=== PATIENT | male | born 1940 | race Caucasian/White ===

== ENCOUNTER 2023-09-27 10:12 | Emergency (ER) | payer OTHER ==
[~2023-09-27] VITALS: Ht 170.2 cm; Wt 61.2 kg
[2023-09-27] MEDS ORDERED: GLUMETZA1000 MG (10:56)
[2023-09-27 11:53] LABS: HEMATOCRIT 33.9 % (39.0-48.0); HEMOGLOBIN 11.5 g/dL (13-16.00); MEAN CELL VOLUME 90.6 fL (80.0-100.00); MEAN CORPUSCULAR HEMOGLOBIN 30.7 pg (27.00-32.0); MEAN CORPUSCULAR HGB CONC 33.9 g/dl (32.0-36.0); PLATELET COUNT 306 K/uL (150-450); RED BLOOD COUNT 3.75 M/uL (4.00-6.00); RED CELL DISTRIBUTION WIDTH 13.5 % (11.5-14.5)
[2023-09-27 12:19] LABS: CALCIUM 9.7 mg/dL (8.5-10.1); CREATININE SERUM 0.84 mg/dL (0.70-1.30); GFR 87.27; POTASSIUM 4.26 mEq/L (3.5-5.1)
[2023-09-27] MEDS ORDERED: ZITHROMAX200 MG PO ×2 (12:47→12:50)
== END 2023-09-27 13:02 | disposition home or self-care (01) ==
LOC: ER 10:12
PROVIDERS: General Practice
DX: J10.1 Influenza due to other identified influenza virus with other respiratory manifestations (principal); Z20.822 Contact with and (suspected) exposure to COVID-19; E11.9 Type 2 diabetes mellitus without complications; Z79.84 Long term (current) use of oral hypoglycemic drugs